=== PATIENT | male | born 1995 | race Caucasian/White ===

== ENCOUNTER 2018-02-14 09:47 | Emergency (ER) | payer SELFPAY ==
[2018-02-14 10:27] LABS: Absolute Lymphocytes (CBC) 1.7 K/uL (0.7-4.9); Absolute Monocytes 0.7 K/uL (0.1-1.3); Absolute Neutrophil 5.4 K/uL (1.8-8.0); Basophils % 0.4 % (0-1.3); Eosinophils % 3.2 % (0-4.4); Hematocrit 44.2 % (39.6-49.0); Lymphocytes % 21.1 % (15.3-44.8); MCH 31.9 pg (27.0-35.0); MCV 91.3 fL (80-100); MPV 9.1 fL (7.6-11.3); Monocytes % 8.8 % (3.3-12.3); RBC Red Blood Cell Count 4.84 M/uL (4.33-5.43)
[2018-02-14] MEDS ORDERED: MORPHINE 4 MG/ML SYR ONE (10:28)
[2018-02-14] MEDS ORDERED: ONDANSETRON 4 MG/2 ML VIAL ONE (10:28)
[2018-02-14] MEDS ORDERED: NA CHLORIDE 0.9% 1,000 ML ONE (10:29)
[2018-02-14 10:33] LABS: Bicarbonate 26 mEq/L (21-31); Glomerular Filtration Rate > 60 mL/min (>60); Glucose Level 102 mg/dL (65-120); Potassium 3.9 mEq/L (3.6-5.0); Sodium Level 138 mEq/L (135-145)
[2018-02-14 10:34] LABS: BUN Blood Urea Nitrogen 15 mg/dL (6-20); Glomerular Filtration Rate > 90 mL/min (=/>90)
--- NOTE | 2018-02-14 10:56 | RAD REPORT ---
EXAM DESCRIPTION: CT - Head C Spine Cap Jann Bueno - 02/14/2018 10:39 am CLINICAL HISTORY: Fall from roof COMPARISON: None. TECHNIQUE: Axial [address] head images were obtained. Axial [address] cervical spine images were obtaine d with sagittal and coronal reconstruction images reviewed. During dynamic enhancement of 100mL non-i onic contrast, axial 5 mm images of the chest, abdomen and pelvis were obtained. All CT scans are performed using dose optimization technique as appropriate and may include automated exposure control or mA/KV adjustment according to patient size. FINDINGS: No intracranial hemorrhage, mass or edema. No midline shift or abnormal fluid collection. Mastoid air cells and paranasal sinuses are clear. No skull fracture. CT cervical spine imaging shows normal height. Normal alignment of the vertebrae. No disc space narro wing. No paraspinal mass or hematoma seen. Central canal detail is inherently limited. Concerns for t raumatic disc herniation or traumatic cord injury can be further addressed with MR imaging. CT chest shows no pneumothorax, pulmonary contusion or pleural fluid collection. No mediastinal hemat amilcar and the aorta and pulmonary arteries are unremarkable. No chest will mass or abnormal axillary fi nding. No displaced rib fracture or other significant bony finding. CT abdomen and pelvis show no injury to solid abdominal viscera. Gallbladder and biliary tree are unr emarkable. No bowel injury or significant finding. No free air, free fluid or abnormal stranding. No urinary bladder abnormality. No significant bony finding. IMPRESSION: No hemorrhage, edema or acute CT Head finding. No fracture or acute finding. Central canal detail is inherently limited throughout the spine. No pneumothorax, pulmonary contusion or significant CT chest finding. No significant CT Abdomen and Pelvis finding.
--- NOTE | 2018-02-14 11:14 | ER ---
Nurse's Notes [facility] Name: Fredo Corcoran Jr Age: 22 yrs Sex: Male : 1995 Arrival Date: 02/14/2018 Time: 09:47 Bed 2 Private MD: Diagnosis: Fall from, out of or through roof;Neck and Back Pain from Fall Presentation: 02/14 09:54 Presenting complaint: Patient states: Fell 10 ft off roof approx 70 min [employer]. Reports aj pain from neck to mid back. Able to move all extremities. Care prior to arrival: None. Mechanism of Injury: Fall from roof. Trauma event details: Injury occurred in the [facility], Injury occurred: at home. Injury occurred: February 14, 2018 Injury occurred at: 08:30. 09:54 Acuity: SAUL 3 aj 09:54 Method Of Arrival: Ambulatory aj 10:03 Transition of care: patient was not received from another setting of care. Onset of aj symptoms was February 14, 2018. Trauma Activation: Alert Physician: ED Physician; Name: ; Notified At: ; Arrived At: Physician: General Surgeon; Name: ; Notified At: ; Arrived At: Physician: Radiology; Name: ; Notified At: ; Arrived At: Physician: Respiratory; Name: ; Notified At: ; Arrived At: Physician: Lab; Name: ; Notified At: ; Arrived At: Historical: - Allergies: 10:04 Ceclor; aj - Home Meds: 10:04 None [Active]; aj - PMHx: 10:04 epilepsy; aj - PSHx: 10:04 Foot surgery; aj - Immunization history: Last tetanus immunization: unknown. - Social history:: Smoking status: Patient uses tobacco products, smokes one pack cigarettes per day. Patient/guardian denies using street drugs. Screenin:50 Abuse screen: Denies threats or abuse. Denies injuries from another. Tuberculosis aj screening: No symptoms or risk factors identified. 11:24 Nutritional screening: No deficits noted. Fall Risk None identified. aj Primary Survey: 09:50 A: Airway: patent. Breathing/Chest: Respiratory pattern: regular, Respiratory effort: aj spontaneous, unlabored, Breath sounds: clear, bilaterally. Chest inspection: symmetrical rise and fall of the chest. Circulation: Skin color: pink, Skin temperature: warm, dry. Disability Alert. 10:45 Reassessment Airway Airway Patent Breathing/Chest Respiratory pattern Regular aj Circulation Heart rhythm Sinus rhythm Disability Alert. Assessment: 09:50 General: Appears in no apparent distress. comfortable, Behavior is calm, cooperative, aj appropriate for age. Pain: Complains of pain in thoracic area and lumbar area. Neuro: Level of Consciousness is awake, alert, obeys commands, Oriented to person, place, time, situation, Appropriate for age Laboratory Mechanic Helper are equal bilaterally Moves all extremities. Full function Gait is steady, Speech is normal, Facial symmetry appears normal. Respiratory: Airway is patent Respiratory effort is even, unlabored, Respiratory pattern is regular, symmetrical. Derm: Skin is intact, is healthy with good turgor, Skin is pink, warm \T\ dry. normal. Musculoskeletal: Reports pain in thoracic area and lumbar area. Musculoskeletal: Circulation, motion, and sensation intact. Range of motion: intact in all extremities. 11:24 Reassessment: Patient appears in no apparent distress at this time. No changes from aj previously documented assessment. Patient and/or family updated on plan of care and expected duration. Pain level reassessed. Patient is alert, oriented x 3, equal unlabored respirations, skin warm/dry/pink. Vital Signs: 09:50 BP 134 / 68; Pulse 77; Resp 17; Temp 98.5; Pulse Ox 99% on R/A; Weight 69.85 kg; Height aj 5 ft. 7 in. (170.18 cm); Pain 10/10; 11:05 BP 108 / 65; Pulse 67; Resp 17; Pulse Ox 100% on R/A; aj 09:50 Body Mass Index 24.12 (69.85 kg, 170.18 cm) aj Julio Coma Score: 09:50 Eye Response: spontaneous(4). Verbal Response: oriented(5). Motor Response: obeys aj commands(6). Total: 15. Trauma Score (Adult): 09:50 Eye Response: spontaneous(1); Verbal Response: oriented(1); Motor Response: obeys aj commands(2); Systolic BP: > 89 mm Hg(4); Respiratory Rate: 10 to 29 per min(4); Julio Score: 15; Trauma Score: 12 ED Course: 09:47 Patient arrived in ED. as 09:50 Patient has correct armband on for positive identification. aj 09:50 Patient maintains SpO2 saturation greater than 95% on room air. aj 09:50 Inserted saline lock: 18 gauge in left antecubital area, using aseptic technique. Blood aj collected. By Francesca Logan RN. 09:54 Yasmin Mendoza, RN is Primary Nurse. aj 09:54 Angel Santiago PA is PHCP. cp 09:54 Mando Ochoa MD is Attending Physician. cp 09:57 Triage completed. aj 10:04 Arm band placed on right wrist. Patient placed in an exam room, on a stretcher. aj 10:[address] via stretcher. jg1 10:30 CT completed. Patient tolerated procedure well. Patient moved to CT via stretcher. jg1 Patient moved back from CT. 10:39 CT Traumagram (Head C Spine CAP W Con) In Process Unspecified. EDMS 11:24 No provider procedures requiring assistance completed. aj 11:25 IV discontinued, intact, bleeding controlled, No redness/swelling at site. Pressure aj dressing applied. 11:27 Thermoregulation: warm blanket given to patient. aj Administered Medications: 10:14 Drug: morphine 2 mg Route: IVP; Site: left antecubital; aj 11:27 Follow up: Response: No adverse reaction; Pain is decreased aj 10:14 Drug: Zofran 4 mg Route: IVP; Site: left antecubital; aj 11:27 Follow up: Response: No adverse reaction aj 10:52 Drug: NS 0.9% 1000 ml Route: IV; Rate: 1 bolus; Site: left antecubital; aj 11:27 Follow up: Response: No adverse reaction; IV Status: Completed infusion; IV Intake: aj 1000ml Intake: 10:45 IV: 1000ml (IV Fluid); Total: 1000ml. aj 11:27 IV: 1000ml; Total: 2000ml. aj Outcome: 11:13 Discharge ordered by . cp 11:25 Discharged to home ambulatory. aj 11:25 Condition: good 11:25 Discharge instructions given to patient, Instructed on discharge instructions, follow up and referral plans. medication usage, Demonstrated understanding of instructions, follow-up care, medications, Prescriptions given X 2. 11:27 Patient's length of stay was not longer than 2 hours. aj 11:28 Patient left the ED. aj Signatures: Dispatcher [employer] EDWI Yasmin Mendoza, RN RN Charity Irene Amelia as Angel Santiago, RANJAN PA cp
--- NOTE | 2018-02-14 11:14 | EDPHYS ---
Physician Documentation [facility] Name: Fredo Corcoran Jr Age: 22 yrs Sex: Male : 1995 Arrival Date: 02/14/2018 Time: 09:47 Bed 2 Private MD: ED Physician Mando Ochoa HPI: 02/14 09:58 This 22 yrs old Male presents to ER via Ambulatory with complaints of Fall cp Injury - off roof 10ft. 09:58 Details of fall: The patient fell from a height, off a roof, approximately 10 feet, but cp with the patient's fall somewhat interrupted. Onset: The symptoms/episode began/occurred this morning, at 08:30. Associated injuries: The patient sustained neck injury, pain, upper back injury, pain. Historical: - Allergies: 10:04 Ceclor; aj - Home Meds: 10:04 None [Active]; aj - PMHx: 10:04 epilepsy; aj - PSHx: 10:04 Foot surgery; aj - Immunization history: Last tetanus immunization: unknown. - Social history:: Smoking status: Patient uses tobacco products, smokes one pack cigarettes per day. Patient/guardian denies using street drugs. ROS: 10:05 Constitutional: Negative for body aches, chills, fever, poor PO intake. cp 10:05 Eyes: Negative for injury, pain, redness, and discharge, ENT: Negative for injury, cp pain, and discharge. 10:05 Neck: Positive for pain with movement, pain at rest, bony tenderness. 10:05 Cardiovascular: Negative for chest pain, palpitations. 10:05 Respiratory: Negative for cough, shortness of breath, wheezing. 10:05 Abdomen/GI: Negative for nausea, vomiting, and diarrhea, black/tarry stool, rectal bleeding. 10:05 Back: Positive for pain at rest, pain with movement, of the thoracic area. 10:05 : Negative for urinary symptoms, testicular pain 10:05 MS/extremity: Negative for decreased range of motion, deformity, paresthesias. 10:05 Skin: Negative for cellulitis, laceration(s), rash. 10:05 Neuro: Negative for altered mental status, loss of consciousness. 10:05 All other systems are negative. Exam: 10:11 Head/Face: Normocephalic, atraumatic. Eyes: Pupils equal round and reactive to light, cp extra-ocular motions intact. Lids and lashes normal. Conjunctiva and sclera are non-icteric and not injected. Cornea within normal limits. Periorbital areas with no swelling, redness, or edema. ENT: Nares patent. No nasal discharge, no septal abnormalities noted. Tympanic membranes are normal and external auditory canals are clear. Oropharynx with no redness, swelling, or masses, exudates, or evidence of obstruction, uvula midline. Mucous membranes moist. 10:11 Constitutional: The patient appears in no acute distress, alert, awake, non-toxic, well developed, well nourished. 10:11 Neck: C-spine: C-collar placed in ED, vertebral tenderness, that is moderate, appreciated at cervical area, crepitus, is not appreciated, Trachea: is midline with no obvious abnormalities. 10:11 Chest/axilla: Inspection: normal, Palpation: is normal, no crepitus, no tenderness. 10:11 Cardiovascular: Rate: normal, Rhythm: regular, Pulses: Pulses are 2+ in right radial artery, right dorsalis pedis artery, left radial artery and left dorsalis pedis artery. Edema: is not appreciated, JVD: is not appreciated. 10:11 Respiratory: the patient does not display signs of respiratory distress, Respirations: normal, no use of accessory muscles, no retractions, no splinting, no tachypnea, labored breathing, is not present, Breath sounds: are clear throughout, no decreased breath sounds, no stridor, no wheezing. 10:11 Abdomen/GI: Inspection: abdomen appears normal, Bowel sounds: active, all quadrants, Palpation: soft, in all quadrants, mild abdominal tenderness, in the right upper quadrant, rebound tenderness, is not appreciated, voluntary guarding, is not appreciated, involuntary guarding, is not appreciated. 10:11 Back: pain, that is moderate, of the thoracic area. 10:11 Musculoskeletal/extremity: Extremities: all appear grossly normal, with no appreciated pain with palpation, Sensation intact. 10:11 Skin: cellulitis, is not appreciated, no rash present. 10:11 Neuro: Orientation: to person, place \T\ time. Mentation: is normal, Cerebellar function: is grossly normal, Motor: moves all fours, strength is normal, Sensation: no obvious gross deficits. Vital Signs: 09:50 BP 134 / 68; Pulse 77; Resp 17; Temp 98.5; Pulse Ox 99% on R/A; Weight 69.85 kg; Height aj 5 ft. 7 in. (170.18 cm); Pain 10/10; 11:05 BP 108 / 65; Pulse 67; Resp 17; Pulse Ox 100% on R/A; aj 09:50 Body Mass Index 24.12 (69.85 kg, 170.18 cm) aj [place] Coma Score: 09:50 Eye Response: spontaneous(4). Verbal Response: oriented(5). Motor Response: obeys aj commands(6). Total: 15. Trauma Score (Adult): 09:50 Eye Response: spontaneous(1); Verbal Response: oriented(1); Motor Response: obeys aj commands(2); Systolic BP: > 89 mm Hg(4); Respiratory Rate: 10 to 29 per min(4); Julio Score: 15; Trauma Score: 12 MDM: 09:54 Patient medically screened. 10:15 Differential diagnosis: closed head injury, contusion, fracture, laceration, multiple cp trauma. 11:10 Data reviewed: vital signs, nurses notes, lab test result(s), radiologic studies, CT cp scan. 11:10 Counseling: I had a detailed discussion with the patient and/or guardian regarding: the cp historical points, exam findings, and any diagnostic results supporting the discharge/admit diagnosis, lab results, radiology results, to return to the emergency department if symptoms worsen or persist or if there are any questions or concerns that arise at home. ED course: VSS. Trauma CT exam negative for acute injury. Will discharge to home for continued monitoring. 02/14 10:02 Order name: Basic Metabolic Panel; Complete Time: 10:58 cp 02/14 10:59 Interpretation: Reviewed. 02/14 10:02 Order name: CBC with Diff; Complete Time: 10:58 cp 02/14 10:02 Order name: CT Traumagram (Head C Spine CAP W Con); Complete Time: 10:58 cp 02/14 10:59 Interpretation: Report reviewed. 02/14 10:02 Order name: Creatinine for Radiology; Complete Time: 10:58 cp 02/14 10:02 Order name: Labs collected and sent; Complete Time: 10:14 cp 02/14 10:02 Order name: IV; Complete Time: 10:14 cp Administered Medications: 10:14 Drug: morphine 2 mg Route: IVP; Site: left antecubital; aj 11:27 Follow up: Response: No adverse reaction; Pain is decreased aj 10:14 Drug: Zofran 4 mg Route: IVP; Site: left antecubital; aj 11:27 Follow up: Response: No adverse reaction aj 10:52 Drug: NS 0.9% 1000 ml Route: IV; Rate: 1 bolus; Site: left antecubital; aj 11:27 Follow up: Response: No adverse reaction; IV Status: Completed infusion; IV Intake: aj 1000ml Disposition: 02/14/18 11:13 Discharged to Home. Impression: Fall from, out of or through roof, Neck and Back Pain from Fall. - Condition is Stable. - Discharge Instructions: Back Pain, Adult, Musculoskeletal Pain. - Prescriptions for Naprosyn 500 mg Oral Tablet - take 1 tablet by ORAL route 2 times per day take with food; 20 tablet. Cyclobenzaprine 10 mg Oral Tablet - take 1 tablet by ORAL route every 8 hours As needed; 15 tablet. - Medication Reconciliation Form, Thank You Letter, Antibiotic Education, Prescription Opioid Use form. - Follow up: Private Physician; When: 1 - 2 days; Reason: Recheck today's complaints. - Problem is new. - Symptoms have improved. Addendum: 02/15/2018 13:19 Co-signature as Attending Physician, Mando Ochoa MD. g s Signatures: Dispatcher [employer] Yasmin Harris RN RN aj Page, Corey, PA PA cp Starr, Gregory, MD MD Corrections: (The following items were deleted from the chart) 02/14 10:06 10:02 IV Saline Lock ordered. golden estrada
== END 2018-02-14 11:28 | disposition home or self-care (01) ==
LOC: ER 09:47
DX: M54.89 Other dorsalgia (principal); W13.2XXA Fall from, out of or through roof, initial encounter; Y93.9 Activity, unspecified; Y92.89 Other specified places as the place of occurrence of the external cause; Z88.1 Allergy status to other antibiotic agents; F17.210 Nicotine dependence, cigarettes, uncomplicated
CPT/HCPCS: 36415; 70450; 71260; 72125; 74177; 80048; 85025; 96361; 96374; 96375; 99285; J2405; J7030; Q9967

== ENCOUNTER 2018-03-16 06:11 | Emergency (ER) | payer SELFPAY ==
[2018-03-16 06:48] LABS: Absolute Lymphocytes (CBC) 1.4 K/uL (0.7-4.9); Absolute Monocytes 1.4 K/uL (0.1-1.3); Absolute Neutrophil 14.4 K/uL (1.8-8.0); Basophils % 0.1 % (0-1.3); Eosinophils % 1.2 % (0-4.4); Hematocrit 45.5 % (39.6-49.0); Lymphocytes % 8.2 % (15.3-44.8); MCH 32.1 pg (27.0-35.0); MCV 91.8 fL (80-100); MPV 9.6 fL (7.6-11.3); Monocytes % 8.2 % (3.3-12.3); RBC Red Blood Cell Count 4.96 M/uL (4.33-5.43)
[2018-03-16 07:00] LABS: Bicarbonate 30 mEq/L (21-31); Glucose Level 121 mg/dL (65-120); Lipase 20 U/L (22-51); Potassium 3.8 mEq/L (3.6-5.0); Sodium Level 140 mEq/L (135-145)
[2018-03-16 07:06] LABS: ALT/SGPT 14 IU/L (10-60); AST/SGOT 19 IU/L (10-42); Albumin 4.2 g/dL (3.2-5.5); Alkaline Phosphatase 52 IU/L (42-121); BUN Blood Urea Nitrogen 13 mg/dL (6-20); Bilirubin Direct 0.1 mg/dL (0-0.2); Bilirubin Total 0.9 mg/dL (0.3-1.2); Protein, Total 7.3 g/dL (6.0-8.3)
[2018-03-16] MEDS ORDERED: NA CHLORIDE 0.9% 1,000 ML ONE ×2 (07:23→11:04)
[2018-03-16] MEDS ORDERED: PROMETHAZINE 25 MG/ML VIAL ONE ×3 (07:23→08:19)
[2018-03-16] MEDS ORDERED: FENTANYL CITR 100 MCG/2 ML ONE (08:12)
[2018-03-16] MEDS ORDERED: ONDANSETRON 4 MG/2 ML VIAL ONE (08:21)
--- NOTE | 2018-03-16 09:29 | RAD REPORT ---
EXAM DESCRIPTION: CTAbdomen Pelvis W Contrast - 03/16/2018 9:14 am CLINICAL HISTORY: Abdominal pain. COMPARISON: 02/14/2018 TECHNIQUE: Biphasic CT imaging of the abdomen and pelvis was performed with 100 ml non-ionic IV cont rast. All CT scans are performed using dose optimization technique as appropriate and may include automated exposure control or mA/KV adjustment according to patient size. FINDINGS: The lung bases are clear. The liver, spleen, pancreas, adrenal glands and kidneys are within normal limits. No bowel obstruction, free air, free fluid or abscess. Mural and mucosal thickening of the colon is s een particularly the descending and sigmoid colon, compatible with mild colitis. No pneumatosis coli identified. The appendix is normal. No evidence of significant lymphadenopathy. No suspicious bony findings. IMPRESSION: Mild colitis is suspected.
[2018-03-16] MEDS ORDERED: METRONIDAZOLE 500mg IVPB 500 MG/100 ML BAG IV ONE (10:00)
[2018-03-16] MEDS ORDERED: CIPROFLOXACIN 400mg IV 400 MG/200 ML BAG IV ONE (10:00)
--- NOTE | 2018-03-16 11:24 | ER ---
Nurse's Notes [facility] Name: Fredo Corcoran Jr Age: 22 yrs Sex: Male : 1995 Arrival Date: 03/16/2018 Time: 06:12 Bed 6 Private MD: Diagnosis: Left sided colitis;Nausea and vomiting;Dehydration Presentation: 03/16 06:26 Presenting complaint: Patient states: "I've been eating a lot of chicken livers lately tl2 and I think it is messing up my stomach. I've had abdominal pain, vomiting and diarrhea since 0200 this morning". Transition of care: patient was not received from another setting of care. Onset of symptoms was March 16, 2018 at 02:00. Initial Sepsis Screen: Does the patient meet any 2 criteria? No. Patient's initial sepsis screen is negative. Does the patient have a suspected source of infection? No. Patient's initial sepsis screen is negative. Care prior to arrival: None. 06:26 Method Of Arrival: Ambulatory tl2 06:26 Acuity: SAUL 3 tl2 Triage Assessment: 06:28 General: Appears in no apparent distress. uncomfortable, Behavior is cooperative, tl2 appropriate for age, anxious. Pain: Complains of pain in abdomen. Neuro: Level of Consciousness is awake, alert, obeys commands, Oriented to person, place, time, situation. Cardiovascular: Denies chest pain. Respiratory: Airway is patent Respiratory effort is even, unlabored, Respiratory pattern is regular, symmetrical. GI: Abdomen is flat, Bowel sounds present X 4 quads. Reports diarrhea, nausea, vomiting. : No signs and/or symptoms were reported regarding the genitourinary system. Derm: Skin is pale. Historical: - Allergies: 06:28 Ceclor; tl2 - Home Meds: 06:28 None [Active]; tl2 - PMHx: 06:28 epilepsy; tl2 - PSHx: 06:28 None; tl2 - Immunization history:: Adult Immunizations up to date. - Social history:: Smoking status: Patient uses tobacco products, smokes one-half pack cigarettes per day. Screenin:32 Abuse screen: Denies threats or abuse. Nutritional screening: No deficits noted. tl2 Tuberculosis screening: No symptoms or risk factors identified. Fall Risk None identified. Assessment: 07:25 Reassessment: Patient and/or family updated on plan of care and expected duration. Pain jl7 level reassessed. Patient is alert, oriented x 3, equal unlabored respirations, skin warm/dry/pink. pt reports N/V/D and abdominal pain, rated 7/10, awaiting meds from pharmacy. GI: Bowel sounds hyperactive in right upper quadrant, left upper quadrant, right lower quadrant and left lower quadrant Abd is soft Abdomen is tender to palpation X 4 quads. 07:38 Reassessment: Pt actively vomiting, provider notified, see MAR for orders. jl7 Vital Signs: 06:28 BP 132 / 75; Pulse 70; Resp 18; Temp 97.4(O); Pulse Ox 99% on R/A; Weight 69.85 kg; tl2 Height 5 ft. 7 in. (170.18 cm); Pain 5/10; 07:25 BP 124 / 70; Pulse 74; Resp 16; Pulse Ox 100% ; Pain 7/10; jl7 11:22 BP 131 / 69; Pulse 71; Resp 18; Pulse Ox 99% on R/A; jb1 06:28 Body Mass Index 24.12 (69.85 kg, 170.18 cm) tl2 ED Course: 06:12 Patient arrived in ED. am2 06:27 Triage completed. tl2 06:28 Iggy Singh PA is PHCP. jr8 06:28 Kuldeep Zhang MD is Attending Physician. jr8 06:28 Arm band placed on right wrist. tl2 06:32 Patient has correct armband on for positive identification. Bed in low position. Call tl2 light in reach. Side rails up X 1. 06:32 Inserted saline lock: 18 gauge in left antecubital area, using aseptic technique. Blood tl2 collected. placed by douglas [place]. 06:58 Oracio Neal, RN is Primary Nurse. bp 07:20 Primary Nurse role handed off by Oracio Neal RN jl7 07:20 Aj Romero, ARCHANA is Primary Nurse. jl7 08:[address] via stretcher. jg1 09:13 Patient moved back from CT. jg1 09:15 CT Abd/Pelvis - W/Contrast In Process Unspecified. EDMS 11:48 No provider procedures requiring assistance completed. IV discontinued, intact, ae1 bleeding controlled, No redness/swelling at site. Pressure dressing applied. Administered Medications: 07:25 Drug: Promethazine 12.5 mg Route: IVP; Site: left antecubital; jl7 07:25 Drug: NS 0.9% 1000 ml Route: IV; Rate: 1000 ml; Site: left antecubital; jl7 07:40 Drug: Promethazine 12.5 mg Route: IVP; Site: left antecubital; jl7 11:07 Follow up: Response: Nausea is decreased ae1 08:15 Drug: fentaNYL (PF) 50 mcg Route: IVP; Site: left antecubital; jl7 11:47 Follow up: Response: Pain is decreased ae1 08:22 Drug: Zofran 4 mg Route: IVP; Site: left antecubital; jl7 11:08 Follow up: Response: Nausea is decreased ae1 10:05 Drug: Flagyl 500 mg Volume: 100 ml; Route: IVPB; Rate: 200 ml/hr; Infused Over: 30 ae1 mins; Site: left antecubital; 11:07 Follow up: IV Status: Completed infusion ae1 10:08 Drug: Cipro 400 mg Volume: 200 ml; Route: IVPB; Infused Over: 60 mins; Site: left ae1 antecubital; 11:49 Follow up: IV Status: Completed infusion ae1 11:07 Drug: NS 0.9% 1000 ml Route: IV; Rate: 1000 ml; Site: left antecubital; ae1 11:49 Follow up: IV Status: Completed infusion ae1 Outcome: 11:23 Discharge ordered by MD. eatno 11:48 Discharged to home ambulatory, with a steady gait. ae1 11:48 Condition: stable 11:48 Discharge instructions given to patient, Instructed on discharge instructions, follow up and referral plans. medication usage, Demonstrated understanding of instructions, Prescriptions given X 4. 11:49 Patient left the ED. ae1 Signatures: Dispatcher [employer] EDMS [place] Jessica jg1 Roszak, Josh, PA PA jr8 Genia Garcia RN RN tl2 Renard Suh RN RN ae1 Aj Romero RN RN jl7 Yasmin Null am2 Oracio Neal RN RN bp
--- NOTE | 2018-03-16 11:24 | EDPHYS ---
Physician Documentation [facility] Name: Fredo Corcoran Jr Age: 22 yrs Sex: Male : 1995 Arrival Date: 03/16/2018 Time: 06:12 Bed 6 Private MD: ED Physician Kuldeep Zhang HPI: 03/16 07:46 This 22 yrs old Male presents to ER via Ambulatory with complaints of jr8 Abdominal Pain. 07:46 The patient presents with abdominal pain that is diffuse. Onset: The symptoms/episode jr8 began/occurred acutely, today. The symptoms do not radiate. Associated signs and symptoms: Pertinent positives: nausea, vomiting, and diarrhea. The symptoms are described as crampy. Modifying factors: The symptoms are alleviated by nothing, the symptoms are aggravated by nothing. Severity of pain: At its worst the pain was moderate in the emergency department the pain is unchanged. The patient has not experienced similar symptoms in the past. The patient has not recently seen a physician. Stated that he has been eating a lot of fried chicken livers for the past few days. About 2 am this morning started with abdominal pain, n/v/d . Historical: - Allergies: 06:28 Ceclor; tl2 - Home Meds: 06:28 None [Active]; tl2 - PMHx: 06:28 epilepsy; tl2 - PSHx: 06:28 None; tl2 - Immunization history:: Adult Immunizations up to date. - Social history:: Smoking status: Patient uses tobacco products, smokes one-half pack cigarettes per day. ROS: 07:46 Eyes: Negative for injury, pain, redness, and discharge, ENT: Negative for injury, jr8 pain, and discharge, Neck: Negative for injury, pain, and swelling, Cardiovascular: Negative for chest pain, palpitations, and edema, Respiratory: Negative for shortness of breath, cough, wheezing, and pleuritic chest pain, Back: Negative for injury and pain, MS/Extremity: Negative for injury and deformity, Skin: Negative for injury, rash, and discoloration, Neuro: Negative for headache, weakness, numbness, tingling, and seizure. 07:46 Abdomen/GI: Positive for abdominal pain, nausea, vomiting, and diarrhea, abdominal cramps, Negative for abdominal distension, anorexia, dysphagia, hematemesis, black/tarry stool, rectal pain, rectal bleeding, bowel incontinence, flatulence. Exam: 07:46 Eyes: Pupils equal round and reactive to light, extra-ocular motions intact. Lids and jr8 lashes normal. Conjunctiva and sclera are non-icteric and not injected. Cornea within normal limits. Periorbital areas with no swelling, redness, or edema. ENT: Nares patent. No nasal discharge, no septal abnormalities noted. Tympanic membranes are normal and external auditory canals are clear. Oropharynx with no redness, swelling, or masses, exudates, or evidence of obstruction, uvula midline. Mucous membranes moist. Neck: Trachea midline, no thyromegaly or masses palpated, and no cervical lymphadenopathy. Supple, full range of motion without nuchal rigidity, or vertebral point tenderness. No Meningismus. Cardiovascular: Regular rate and rhythm with a normal S1 and S2. No gallops, murmurs, or rubs. Normal PMI, no JVD. No pulse deficits. Respiratory: Lungs have equal breath sounds bilaterally, clear to auscultation and percussion. No rales, rhonchi or wheezes noted. No increased work of breathing, no retractions or nasal flaring. Back: No spinal tenderness. No costovertebral tenderness. Full range of motion. Skin: Warm, dry with normal turgor. Normal color with no rashes, no lesions, and no evidence of cellulitis. MS/ Extremity: Pulses equal, no cyanosis. Neurovascular intact. Full, normal range of motion. Neuro: Awake and alert, GCS 15, oriented to person, place, time, and situation. Cranial nerves II-XII grossly intact. Motor strength 5/5 in all extremities. Sensory grossly intact. Cerebellar exam normal. Normal gait. 07:46 Abdomen/GI: Inspection: abdomen appears normal, Bowel sounds: active, all quadrants, Palpation: soft, in all quadrants, mild abdominal tenderness, in the abdomen diffusely, mass, is not appreciated, rebound tenderness, is not appreciated, voluntary guarding, is not appreciated, involuntary guarding, is not appreciated, no appreciated organomegaly, Indicators: McBurney's point is not tender, Srivastava's sign is negative, Rovsing's sign is negative, Liver: no appreciated palpable abnormalities, tenderness, is not appreciated. Vital Signs: 06:28 BP 132 / 75; Pulse 70; Resp 18; Temp 97.4(O); Pulse Ox 99% on R/A; Weight 69.85 kg; tl2 Height 5 ft. 7 in. (170.18 cm); Pain 5/10; 07:25 BP 124 / 70; Pulse 74; Resp 16; Pulse Ox 100% ; Pain 7/10; jl7 11:22 BP 131 / 69; Pulse 71; Resp 18; Pulse Ox 99% on R/A; jb1 06:28 Body Mass Index 24.12 (69.85 kg, 170.18 cm) tl2 MDM: 06:28 Patient medically screened. jr8 11:01 Data reviewed: vital signs, nurses notes, lab test result(s), radiologic studies, CT jr8 scan. Data interpreted: Pulse oximetry: on room air is 100 %. Interpretation: normal. Counseling: I had a detailed discussion with the patient and/or guardian regarding: the historical points, exam findings, and any diagnostic results supporting the discharge/admit diagnosis, lab results, radiology results. 11:21 Counseling: I had a detailed discussion with the patient and/or guardian regarding: the jr8 need for outpatient follow up, a family practitioner, to return to the emergency department if symptoms worsen or persist or if there are any questions or concerns that arise at home. ED course: Patient without vomiting since last treatment. Able to keep fluids down. Pain minimal at this time. Reexamination reveals soft abdomen. Patient resting comfortably in exam room. Will send home with medications. Advised to come back if worse . 03/16 06:49 Order name: CBC with Automated Diff; Complete Time: 06:58 EDMS 03/16 07:01 Order name: Basic Metabolic Panel; Complete Time: 07:37 EDMS 03/16 07:01 Order name: Lipase; Complete Time: 07:37 EDMS 03/16 07:07 Order name: Liver (Hepatic) Function; Complete Time: 07:37 EDMS 03/16 07:37 Order name: CT Abd/Pelvis - W/Contrast; Complete Time: 09:47 jr8 03/16 06:29 Order name: IV Saline Lock; Complete Time: 06:33 jr8 03/16 06:29 Order name: Labs collected and sent; Complete Time: 06:33 jr8 Administered Medications: 07:25 Drug: Promethazine 12.5 mg Route: IVP; Site: left antecubital; jl7 07:25 Drug: NS 0.9% 1000 ml Route: IV; Rate: 1000 ml; Site: left antecubital; jl7 07:40 Drug: Promethazine 12.5 mg Route: IVP; Site: left antecubital; jl7 11:07 Follow up: Response: Nausea is decreased ae1 08:15 Drug: fentaNYL (PF) 50 mcg Route: IVP; Site: left antecubital; jl7 11:47 Follow up: Response: Pain is decreased ae1 08:22 Drug: Zofran 4 mg Route: IVP; Site: left antecubital; jl7 11:08 Follow up: Response: Nausea is decreased ae1 10:05 Drug: Flagyl 500 mg Volume: 100 ml; Route: IVPB; Rate: 200 ml/hr; Infused Over: 30 ae1 mins; Site: left antecubital; 11:07 Follow up: IV Status: Completed infusion ae1 10:08 Drug: Cipro 400 mg Volume: 200 ml; Route: IVPB; Infused Over: 60 mins; Site: left ae1 antecubital; 11:49 Follow up: IV Status: Completed infusion ae1 11:07 Drug: NS 0.9% 1000 ml Route: IV; Rate: 1000 ml; Site: left antecubital; ae1 11:49 Follow up: IV Status: Completed infusion ae1 Disposition: 18 11:23 Discharged to Home. Impression: Left sided colitis, Nausea and vomiting, Dehydration. - Condition is Stable. - Discharge Instructions: Dehydration, Adult, Nausea and Vomiting. - Prescriptions for promethazine 25 mg Oral Tablet - take 1 tablet by ORAL route every 6 hours As needed; 20 tablet. Cipro 500 mg Oral Tablet - take 1 tablet by ORAL route every 12 hours for 10 days; 20 tablet. Flagyl 500 mg Oral Tablet - take 1 tablet by ORAL route every 6 hours for 10 days; 40 tablet. Tylenol- Codeine #3 300-30 mg Oral Tablet - take 2 tablets by ORAL route every 6 hours As needed; 20 tablet. - Medication Reconciliation Form, Thank You Letter, Antibiotic Education, Prescription Opioid Use, Work release form form. - Follow up: Private Physician; When: 1 - 2 days; Reason: Recheck today's complaints, Continuance of care, Re-evaluation by your physician. - Problem is new. - Symptoms have improved. Addendum: 04/07/2018 01:01 Co-signature as Attending Physician, Kuldeep Zhang MD available for consultation at p s1 all times. . Signatures: Dispatcher [employer] EDCT Iggy Singh PA PA jr8 Genia Garcia, RN RN tl2 Renard Suh RN RN ae1 Aj Romero, RN RN jl7 Kuldeep Zhang MD MD ps1 Corrections: (The following items were deleted from the chart) 03/16 11:15 08:34 CBC+H.LAB.BRZ ordered. EDCT EDMS 11:16 08:34 BASIC METABOLIC PANEL+C.LAB.BRZ ordered. EDCT EDMS 11:16 08:34 Creatinine for Radiology+C.LAB.BRZ ordered. EDCT EDMS 11:16 08:34 HEPATIC FUNCTION+C.LAB.BRZ ordered. EDCT EDMS 11:16 08:34 LIPASE+C.LAB.BRZ ordered. [facility] EDCT 11:49 11:23 03/16/2018 11:23 Discharged to Home. Impression: Left sided colitis; Nausea and ae1 vomiting; Dehydration. Condition is Stable. Forms are Medication Reconciliation Form, Thank You Letter, Antibiotic Education, Prescription Opioid Use. Follow up: Private Physician; When: 1 - 2 days; Reason: Recheck today's complaints, Continuance of care, Re-evaluation by your physician. Problem is new. Symptoms have improved. jr8
== END 2018-03-16 11:49 | disposition home or self-care (01) ==
LOC: ER 06:11
DX: K51.50 Left sided colitis without complications (principal); E86.0 Dehydration
CPT/HCPCS: 36415; 74177; 80048; 80076; 83690; 85025; 96365; 96375; 99284; J0744; J2405; J2550; J3010; J7030; Q9967

== ENCOUNTER 2018-06-14 19:39 | Emergency (ER) | payer SELFPAY ==
[2018-06-14] MEDS ORDERED: DIVALPROEX DR 250 MG TAB PO ONE (20:24)
[2018-06-14] MEDS ORDERED: IBUPROFEN 400 MG TAB ONE (20:24)
--- NOTE | 2018-06-14 20:24 | EDPHYS ---
Physician Documentation [facility] Name: Fredo Corcoran Jr Age: 22 yrs Sex: Male : 1995 Arrival Date: 06/14/2018 Time: 19:40 Bed 5 Private MD: ED Physician Kuldeep Zhang HPI: 06/14 20:13 This 22 yrs old Male presents to ER via EMS with complaints of Seizure. ps1 20:13 patient with longterm seizure disorder that has been off of his Depakote for a month ps1 2/2 financial reasons. Was at work at [employer] and had a seizure. Patient does not remember the event but does not attest to having injury from event. . Historical: - Allergies: 19:42 Ceclor; bp - Home Meds: 19:42 None [Active]; bp - PMHx: 19:42 epilepsy; bp - Immunization history:: Adult Immunizations up to date. - Social history:: Smoking status: Patient uses tobacco products, denies chronic smoking, but will smoke occasionally. - Ebola Screening: : Patient negative for fever greater than or equal to 101.5 degrees Fahrenheit, and additional compatible Ebola Virus Disease symptoms Patient denies exposure to infectious person Patient denies travel to an Ebola-affected area in the 21 days before illness onset No symptoms or risks identified at this time. ROS: 20:13 Constitutional: Negative for fever, chills, and weight loss, Eyes: Negative for injury, ps1 pain, redness, and discharge, Cardiovascular: Negative for chest pain, palpitations, and edema, Respiratory: Negative for shortness of breath, cough, wheezing, and pleuritic chest pain, Abdomen/GI: Negative for abdominal pain, nausea, vomiting, diarrhea, and constipation, Back: Negative for injury and pain, Skin: Negative for injury, rash, and discoloration. 20:13 Neuro: Positive for seizure activity. Exam: 20:13 Constitutional: This is a well developed, well nourished patient who is awake, alert, ps1 and in no acute distress. Head/Face: Normocephalic, atraumatic. Eyes: Pupils equal round and reactive to light, extra-ocular motions intact. Lids and lashes normal. Conjunctiva and sclera are non-icteric and not injected. Chest/axilla: Normal chest wall appearance and motion. Nontender with no deformity. No lesions are appreciated. Cardiovascular: Regular rate and rhythm. No gallops, murmurs, or rubs. Normal PMI, no JVD. No pulse deficits. Respiratory: Lungs have equal breath sounds bilaterally, clear to auscultation and percussion. No rales, rhonchi or wheezes noted. No increased work of breathing, no retractions or nasal flaring. Abdomen/GI: Soft, non-tender, with normal bowel sounds. No distension or tympany. No guarding or rebound. No evidence of tenderness throughout. Back: No spinal tenderness. No costovertebral tenderness. Full range of motion. MS/ Extremity: Pulses equal, no cyanosis. Neurovascular intact. Full, normal range of motion. Neuro: Awake and alert, GCS 15, oriented to person, place, time, and situation. Cranial nerves II-XII grossly intact. Sensory grossly intact. Psych: Awake, alert, with orientation to person, place and time. Behavior, mood, and affect are within normal limits. Vital Signs: 19:42 BP 115 / 81; Pulse 83; Resp 18; Temp 98.3; Pulse Ox 97% on R/A; Weight 71.67 kg; Height ea 5 ft. 7 in. (170.18 cm); Pain 0/10; 19:42 Body Mass Index 24.75 (71.67 kg, 170.18 cm) ea [place]io Coma Score: 19:42 Eye Response: spontaneous(4). Verbal Response: oriented(5). Motor Response: obeys bp commands(6). Total: 15. MDM: 20:11 Patient medically screened. ga 20:13 Data reviewed: vital signs, nurses notes, and as a result, I will discharge patient, ps1 prescribe anticonvulsant, Depakote. Administered Medications: 20:23 Drug: Depakote 500 mg Route: PO; ea 20:27 Follow up: Response: No adverse reaction bp 20:23 Drug: Motrin 800 mg Route: PO; ea 20:28 Follow up: Response: No adverse reaction bp Disposition: 06/14/18 20:17 Discharged to Home. Impression: Epilepsy and recurrent seizures. - Condition is Stable. - Discharge Instructions: Seizure, Adult. - Prescriptions for Depakote 500 mg Oral Tablet - take 1 tablet by ORAL route every 12 hours; 60 tablet. - Medication Reconciliation Form, Thank You Letter, Antibiotic Education, Prescription Opioid Use form. - Follow up: Private Physician; When: As needed; Reason: Recheck today's complaints, Continuance of care, Re-evaluation by your physician. Follow up: Emergency Department; When: As needed; Reason: Worsening of condition. - Problem is new. - Symptoms have improved. Signatures: Marilee Deluca RN Chandrakant Colon ea, MD MD wa Peltier, Brian, RN RN bp Kuldeep Zhang MD MD ps1 Corrections: (The following items were deleted from the chart) 20:29 20:17 06/14/2018 20:17 Discharged to Home. Impression: Epilepsy and recurrent seizures. bp Condition is Stable. Forms are Medication Reconciliation Form, Thank You Letter, Antibiotic Education, Prescription Opioid Use. Follow up: Private Physician; When: As needed; Reason: Recheck today's complaints, Continuance of care, Re-evaluation by your physician. Follow up: Emergency Department; When: As needed; Reason: Worsening of condition. Problem is new. Symptoms have improved. ps1
--- NOTE | 2018-06-14 20:24 | ER ---
Nurse's Notes [facility] Name: Fredo Corcoran Jr Age: 22 yrs Sex: Male : 1995 Arrival Date: 06/14/2018 Time: 19:40 Bed 5 Private MD: Diagnosis: Epilepsy and recurrent seizures Presentation: 06/14 19:41 Presenting complaint: EMS states: HE HAD A WITNESSED SEIZURE AT WORK, IT LASTED ABOUT bp TWO MINUTES. Transition of care: patient was not received from another setting of care. Onset of symptoms was June 14, 2018 at 19:00. Risk Assessment: Do you want to hurt yourself or someone else? Patient reports no desire to harm self or others. Initial Sepsis Screen: Does the patient meet any 2 criteria? No. Patient's initial sepsis screen is negative. Does the patient have a suspected source of infection? No. Patient's initial sepsis screen is negative. Care prior to arrival: IV initiated. 20 GA, in the left antecubital area, Glucose check: 130. 19:41 Method Of Arrival: EMS: [facility] bp 19:41 Acuity: SAUL 4 bp Triage Assessment: 19:42 General: Appears in no apparent distress. comfortable, Behavior is calm, cooperative, bp appropriate for age. Pain: Denies pain. EENT: No deficits noted. Neuro: Level of Consciousness is awake, alert, obeys commands, Oriented to person, place, time, situation, Appropriate for age. Cardiovascular: No deficits noted. Respiratory: Airway is patent Respiratory effort is even, unlabored, Respiratory pattern is regular, symmetrical. GI: No signs and/or symptoms were reported involving the gastrointestinal system. : No signs and/or symptoms were reported regarding the genitourinary system. Derm: No deficits noted. Musculoskeletal: Circulation, motion, and sensation intact. Range of motion: intact in all extremities. Historical: - Allergies: 19:42 Ceclor; bp - Home Meds: 19:42 None [Active]; bp - PMHx: 19:42 epilepsy; bp - Immunization history:: Adult Immunizations up to date. - Social history:: Smoking status: Patient uses tobacco products, denies chronic smoking, but will smoke occasionally. - Ebola Screening: : Patient negative for fever greater than or equal to 101.5 degrees Fahrenheit, and additional compatible Ebola Virus Disease symptoms Patient denies exposure to infectious person Patient denies travel to an Ebola-affected area in the 21 days before illness onset No symptoms or risks identified at this time. Screenin:43 Abuse screen: Denies threats or abuse. Nutritional screening: No deficits noted. ea Tuberculosis screening: No symptoms or risk factors identified. Fall Risk Secondary diagnosis (15 points) seizures. Assessment: 19:44 Reassessment: SEE TRIAGE NOTE. PER EMS, PT POST-ICTAL ON SCENE, NOW AOx4, STEADY GAIT, bp NO ATAXIA. 19:44 General: Appears in no apparent distress. Behavior is calm, cooperative, appropriate ea for age. Pain: Denies pain. Neuro: Level of Consciousness is awake, alert, obeys commands, Oriented to person, place, time, situation, Gait is steady, Speech is normal, Pupils are PERRLA. Cardiovascular: Patient's skin is warm and dry. Respiratory: Airway is patent Respiratory effort is even, unlabored, Respiratory pattern is regular, symmetrical. GI: No signs and/or symptoms were reported involving the gastrointestinal system. GI: Abdomen is flat, non-distended. : No signs and/or symptoms were reported regarding the genitourinary system. Derm: Skin is pink, warm \T\ dry. Musculoskeletal: Circulation, motion, and sensation intact. 20:28 Reassessment: PT D/C HOME AMBULATORY, DX WITH SZ D/O. NO S/S SZ ACTIVITY AT THIS TIME. bp Vital Signs: 19:42 BP 115 / 81; Pulse 83; Resp 18; Temp 98.3; Pulse Ox 97% on R/A; Weight 71.67 kg; Height ea 5 ft. 7 in. (170.18 cm); Pain 0/10; 19:42 Body Mass Index 24.75 (71.67 kg, 170.18 cm) ea [place] Coma Score: 19:42 Eye Response: spontaneous(4). Verbal Response: oriented(5). Motor Response: obeys bp commands(6). Total: 15. ED Course: 19:40 Patient arrived in ED. bp 19:42 Triage completed. bp 19:42 Arm band placed on. bp 19:45 Oracio Neal, RN is Primary Nurse. bp 19:45 Seizure precautions initiated. ea 19:45 Maintain EMS IV. Dressing intact. Good blood return noted. Site clean \T\ dry. Gauge \T\ bp site: 20 GAUGE LEFT AC. 20:11 Chandrakant Infante MD is Attending Physician. julian 20:13 Kuldeep Zhang MD is Attending Physician. ps1 20:24 No provider procedures requiring assistance completed. ea 20:28 IV discontinued, intact, bleeding controlled, No redness/swelling at site. Pressure bp dressing applied. Administered Medications: 20:23 Drug: Depakote 500 mg Route: PO; ea 20:27 Follow up: Response: No adverse reaction bp 20:23 Drug: Motrin 800 mg Route: PO; ea 20:28 Follow up: Response: No adverse reaction bp Outcome: 20:17 Discharge ordered by MD. ps1 20:29 Discharged to home ambulatory, with family. bp 20:29 Condition: stable 20:29 Discharge instructions given to patient, Instructed on discharge instructions, follow up and referral plans. medication usage, Demonstrated understanding of instructions, follow-up care, medications, Prescriptions given X 1. 20:29 Patient left the ED. bp Signatures: Marilee Deluca RN RN ea [place], William, MD MD wa Peltier, Brian RN RN bp Kuldeep Zhang MD MD ps1
== END 2018-06-14 20:29 | disposition home or self-care (01) ==
LOC: ER 19:39
DX: G40.909 Epilepsy, unspecified, not intractable, without status epilepticus (principal); Z72.0 Tobacco use; Z88.8 Allergy status to other drugs, medicaments and biological substances
CPT/HCPCS: 99283